=== PATIENT | male | born 1955 | race Caucasian/White ===

== ENCOUNTER 2018-10-25 12:07 | Emergency (ER) | payer MEDICARE ==
[2018-10-25] MEDS ORDERED: TORAdol 30 mg Injection IM ONE (12:59)
[2018-10-25] MEDS ORDERED: TORAdol 30 mg Injection ONE (13:19)
--- NOTE | 2018-10-25 13:59 | XRAY ---
Exam: Right lower extremity duplex Doppler venous ultrasound examination from 10/25/2018. Comparison: None. Indication: 62-year-old male with right leg pain. Technique: Routine grayscale images, color flow images, and Doppler tracings were obtained through the right lower extremity. Findings: Normal transducer compression, color flow imaging, and Doppler signal with augmentation were seen within public health representative segments of the right common femoral vein, proximal, mid, and distal superficial femoral vein, popliteal vein, and distal posterior tibial veins. Normal color flow and Doppler signal augmentation was seen within the profunda femoral vein. I also saw normal transducer compression, color flow, and Doppler signal within the greater saphenous vein of the proximal right thigh. No echogenic clot was seen on the grayscale images. Impression: 1. No sonographic or Doppler evidence of deep venous thrombosis is seen within the right lower extremity.
--- NOTE | 2018-10-25 14:05 | XRAY ---
Exam: 3 views of the right knee from 10/25/2018. Comparison: None. Indication: 62-year-old male with right knee pain and effusion. Findings: AP, oblique, and crosstable lateral views of the right knee were obtained. The lateral image reveals a moderate sized suprapatellar joint effusion. There is mild spurring at the anterior superior margin of the right patella. The patellofemoral joint appears unremarkable on the lateral image. A small calcified fabella (accessory bone) is seen posterior to the right knee on the crosstable lateral view. There is no fracture or dislocation. I also note mild narrowing of medial compartment of the right knee joint with minimal osteophyte formation. The lateral compartment of the right knee joint space is well-preserved. Minimal spurring of the tibial eminences is seen. There is a curved calcification at the proximal medial margin of the medial femoral condyle. This may represent a Kathy-Stieda calcification from old medial collateral ligament injury. Correlate clinically. Incidentally, a faint 9.75 mm x 6 mm oval-shaped calcification is seen just medial to the distal portion of the medial femoral condyle on the AP image. Impression: 1. There is a moderate suprapatellar joint effusion. 2. I see no acute right knee fracture. 3. Mild medial compartment osteoarthritis of the right knee is seen. 4. Apparent Kathy-Stieda calcification adjacent to the proximal aspect of the medial femoral condyle of the distal right femur. This may relate to an old medial collateral ligament injury. Correlate clinically.
[2018-10-25 14:11] VITALS: BP 160/97; PULSE 76; O2SAT 96
--- NOTE | 2018-10-25 14:24 | ERPHSYRPT ---
- History of Present Illness Source: patient Exam Limitations: no limitations Patient Subjective Stated Complaint: Right lower extremity/ankle has been swollen for approx 3 weeks and he went to the doctor about 1 week ago and they have ordered a stress test, he was placed in the hospital in June for gout, for the past 3 days his right knee has been swollen with increased pain and heat , pt thinks that he now has gout in his knee Triage Nursing Assessment: Pt walked into the ER with obvious pain to his right knee, hypertensive but hasn't taken his blood pressure medicines in a couple of days, skin N/W/D, capillary refill <3, pulses normal, +2 edema to the right foot , rates pain 5/10 while laying down and 8/10 while walking Physician History: Pt is a 62 y/o male that has a h/o gout, and he presented to the ED with complains of R knee pain. Pt states, he is taking Allopurinol when he has an attack, but now he was camping and away from his PCP, and his R knee is swollen and painful. Pt denies SOB or cough. No trauma to the knee. No F/C/S. Some pain on palpation and ROM. Other extremities are normal. Method of Injury: unknown (No trauma) Quality: constant, aching, dullness, tightness Lower Extremities Pain: knee: right (swollen, tender and warm) Modifying Factors: Improves With: immobilization Associated Symptoms: none Allergies/Adverse Reactions: No Known Drug Allergies Allergy (Verified 10/25/18 12:48) Home Medications: Omeprazole Magnesium [Prilosec Otc] 40 mg PO DAILY 10/25/18 [History] Valsartan [Diovan] 40 mg PO DAILY 10/25/18 [History] - Review of Systems Constitutional: No Fever, No Chills Respiratory: No Cough, No Dyspnea Cardiac: No Chest Pain, No Edema, No Syncope Abdominal/Gastrointestinal: No Abdominal Pain, No Nausea, No Vomiting, No Diarrhea Musculoskeletal: Arthralgias, Joint Pain (on the R), Joint Swelling Skin: No Symptoms Neurological: No Dizziness, No Focal Weakness, No Sensory Changes Endocrine: No Symptoms - Past Medical History Pertinent Past Medical History: Yes Cardiac History: Hypertension - Past Surgical History Past Surgical History: Yes Gastrointestinal: Hernia Repair Musculoskeletal: Orthopedic Surgery - Social History Smoking Status: Former smoker Exposure to second hand smoke: Yes Drug Use: none Patient Lives Alone: No - Nursing Vital Signs Nursing Vital Signs: Initial Vital Signs Temperature 97.5 F 10/25/18 12:33 Pulse Rate 82 10/25/18 12:33 Blood Pressure 154/97 10/25/18 12:33 O2 Sat by Pulse Oximetry 95 10/25/18 12:33 Pain Scale Pain Intensity [Right Knee] 5 Pain Intensity 5 - Physical Exam General Appearance: alert Cardiovascular/Respiratory Exam: chest non-tender, normal breath sounds, regular rate/rhythm, no respiratory distress Gastrointestinal/Abdominal Exam: non-tender, guarding Back Exam: normal inspection, No vertebral tenderness Knees Exam: right knee: joint effusion, soft tissue tenderness, swelling, left knee: non-tender, normal inspection, normal range of motion Neuro/Tendon Exam: normal sensation, normal motor functions SpO2: 96 - Course Nursing assessment & vital signs reviewed: Yes - Radiology Exams Right Knee X-ray Interpretation: Reviewed by me (Moderate suprapattelar efusion. No fracture. Calcification to proximal aspect to the medial femoral condyle, of distal R femur.) - Radiology Ultrasound Exam Right Venous Lower Extremity Ultrasound: tele radiology report (No DVT seen n the R LE) Ordered Tests: Active Orders 24 hr Category Date Time Status KNEE (3 VIEWS) Stat Exams 10/25/18 13:00 Completed VENOUS UNILAT/LIMITED EXTREMIT [US] Stat Exams 10/25/18 13:28 Completed Medication Summary Discontinued Medications Generic Name Dose Route Start Last Admin Trade Name Wilfridq PRN Reason Stop Dose Admin Ketorolac Tromethamine 60 mg 10/25/18 12:59 10/25/18 13:27 Toradol 30 Mg Injection IM 10/25/18 13:00 60 mg STAT ONE Administration Ketorolac Tromethamine Confirm 10/25/18 13:19 Toradol 30 Mg Injection Administered 10/25/18 13:20 Dose 60 mg .ROUTE .STK-MED ONE - Progress Progress: improved Progress Note: 10/25/18 14:26 Pt was seen and examined. XR and US were ordered. No DVT or fracture were seen. Pt has effusion and some warmth to the knee, secondary to gout exacerbation. Might be pseudogout secondary to calcifications. I ordered for the pt Toradol IM, and instructed to stop Allopurinol now, to prevent exacerbation. I will prescribe Indomethacin, and pt was instructed to f/u with PCP, and Rhematology. - Departure Departure Disposition: Home Clinical Impression: Acute gout Condition: Stable Critical Care Time: No Referrals: DOCTOR,NO FAMILY [Primary Care Provider] - Additional Instructions: Take Indomethacin on full stomach. F/u with PCP and Rhematology. Prescriptions: Indomethacin 50 mg PO TID #30 capsule
== END 2018-10-25 14:37 | disposition home or self-care (01) ==
LOC: ED 12:07
DX: M10.9 Gout, unspecified (principal); M25.561 Pain in right knee
CPT/HCPCS: 73562; 93971; 96372; 99284; J1885